=== PATIENT | female | born 1980 | race Two or more races ===

== ENCOUNTER 2016-05-14 22:40 | Emergency (ER) | payer SELFPAY ==
[~2016-05-14] VITALS: Ht 165.1 cm; Wt 88.5 kg
[2016-05-14 22:55] VITALS: BP 122/48
[2016-05-14] MEDS ORDERED: HYDROmorphone 1mg/ml Carpuject IVP ONE (23:15)
[2016-05-14 23:25] LABS: BASOPHILS % (AUTO) 0.7 % (0.0-2.0); EOSINOPHILS % (AUTO) 5.5 % (0.0-3.0); LYMPHOCYTES % (AUTO) 16.3 % (20.0-45.0); MEAN CORPUSCULAR HGB CONC 32.3 G/DL (32.0-36.0); MEAN CORPUSCULAR VOLUME 87 FL (80-99); MEAN PLATELET VOLUME 6.1 FL (6.5-10.1); MONOCYTES % (AUTO) 5.4 % (1.0-10.0); NEUTROPHILS % (AUTO) 72.1 % (45.0-75.0); PLATELET COUNT 429 K/UL (150-450); RED CELL DISTRIBUTION WIDTH 12.9 % (11.6-14.8); WHITE BLOOD COUNT 14.6 K/UL (4.8-10.8)
[2016-05-14 23:46] LABS: ALANINE AMINOTRANSFERASE 23 U/L (3-33); ALBUMIN/GLOBULIN RATIO 1.1 (1.0-2.7); ANION GAP 17 (5-15); ASPARTATE AMINO TRANSFERASE 40 U/L (5-40); CALCIUM 9.1 mg/dL (8.6-10.2); CARBON DIOXIDE 22 mEQ/L (20-30); CHLORIDE 98 mEQ/L (98-107); CREATININE 0.7 mg/dL (0.5-0.9); GLOMERULAR FILTRATION RATE > 60 mL/min (>60); HEMOLYSIS 19; LIPASE 19 U/L (< 60); POTASSIUM 3.9 mEQ/L (3.4-4.9); SODIUM 137 mEQ/L (135-145); TOTAL PROTEIN 7.4 g/dL (6.6-8.7)
[2016-05-15 00:19] LABS: APPEARANCE,URINE CLEAR; KETONES,URINE NEGATIVE (NEGATIVE); LEUKOCYTE ESTERASE ,URINE NEGATIVE (NEGATIVE); NITRITE,URINE NEGATIVE (NEGATIVE); PH,URINE 5 (4.5-8.0); PROTEIN,URINE 2+ (NEGATIVE); UROBILINOGEN,URINE 4 MG/DL (0.0-1.0)
[2016-05-15 00:24] LABS: BACTERIA,URINE FEW /HPF; SQUAMOUS EPITHELIAL CELL,UR FEW /LPF (NONE/OCC); WBC,URINE 0-2 /HPF (0 - 2)
[2016-05-15 00:25] LABS: FINE GRANULAR CASTS,URINE 0-2 /LPF; MUCUS,URINE MANY /LPF (NONE/OCC)
[2016-05-15 01:00] VITALS: BP 120/47
--- NOTE | 2016-05-15 01:10 | Emergency Room Report ---
History of Present Illness General Chief Complaint: Abdominal Pain Source: Patient Present Illness HPI Is a 35-year-old female with no significant past medical history. She present with chief complaint of abdominal pain and vomiting. Onset today. She had a. It cholecystectomy done at [facility] week ago. Was doing well until tonight. Diffuse pain localized to the upper quadrant. Pain is 10 out of 10. Nausea and vomiting. No diarrhea. Denies any other complaint. Allergies: Coded Allergies: No Known Allergies (Unverified , 05/14/16) Patient History Past Medical History: see triage record, old chart reviewed Past Surgical History: cortes Pertinent Family History: none Social History: Denies: smoking Last Menstrual Period: 3 days ago Now: No Immunizations: other Reviewed Nursing Documentation: PMH: Agreed, PSxH: Agreed Nursing Documentation-PMH Hx Gastrointestinal Problems: Yes - GALLBLADDER SURGERY ,MAY 2016 Review of Systems Eye: Denies: blurred vision, eye pain ENT: Denies: ear pain, nose congestion, throat swelling Respiratory: Denies: cough, shortness of breath Cardiovascular: Denies: chest pain, palpitations Gastrointestinal: Reports: abdominal pain, nausea, vomiting, Denies: diarrhea Musculoskeletal: Denies: back pain, joint pain Skin: Denies: rash Neurological: Denies: headache, numbness Endocrine: Denies: increased thirst, increased urine Hematologic/Lymphatic: Denies: easy bruising All Other Systems: negative except mentioned in HPI Physical Exam Vital Signs Date Time Temp Pulse Resp B/P Pulse Ox O2 Delivery O2 Flow Rate FiO2 05/14/16 22:48 97.9 67 18 120/42 97 Room Air vitals normal Sp02 EP Interpretation: reviewed, normal General Appearance: well appearing, no apparent distress, alert Head: normocephalic, atraumatic Eyes: bilateral eye EOMI, bilateral eye PERRL ENT: hearing grossly normal, normal pharynx Neck: full range of motion, supple, no meningismus Respiratory: chest non-tender, lungs clear, normal breath sounds Cardiovascular #1: regular rate, rhythm, no murmur Gastrointestinal: normal bowel sounds, no mass, no organomegaly, no bruit, non- distended, tenderness - Epigastric Musculoskeletal: back normal, gait/station normal, normal range of motion Psychiatric: mood/affect normal Skin: warm/dry Medical Decision Making Diagnostic Impression: Primary Impression: Postoperative abdominal pain ER Course She presents with postoperative pain. No evidence of obstruction. No evidence of infection. No abscess. Pain is better controlled now. We'll discharge home. Lab Results Impression labs unremarkable CT/MRI/US Diagnostic Results CT/MRI/US Diagnostic Results : Imaging Test Ordered: A CT abdomen and pelvis Impression read by radiologist. Mild stranding to the right of the umbilicus. Last Vital Signs Date Time Temp Pulse Resp B/P Pulse Ox O2 Delivery O2 Flow Rate FiO2 05/14/16 22:55 97.9 98 18 122/48 99 Room Air Status: improved Disposition: HOME, SELF-CARE Condition: Stable Scripts Hydrocodone/Acetaminophen 5-325* (HYDROCODONE/ACETAMINOPHEN 5-325*) 1 Each Tablet 1 TAB ORAL Q6H Y for For Pain, #30 TAB 0 Refills Prov: RANDOLPH MARTIN M.D. 05/15/16 Patient Instructions: Abdominal Pain, Adult Additional Instructions: Followup with your Dr. within 7 days. Return if symptom worsen. Call for an appointment. RANDOLPH MARTIN M.D. May 15, 2016 01:10
[2016-05-15] MEDS ORDERED: HYDROmorphone 1mg/ml Carpuject IVP ONE (01:15)
[2016-05-15] MEDS ORDERED: HYDROCODON-ACE1 EA15 ORAL (01:49)
[2016-05-15] MEDS ORDERED: BACTRIM DOUBLE S1 E1 ORAL (02:52)
[2016-05-15 02:55] VITALS: BP 125/55
--- NOTE | 2016-05-15 08:47 | Diagnostic Imaging Report ---
Indications: Abdominal pain Technique: Continuous helical CT imaging of the abdomen and pelvis was performed with automatic exposure control following administration of nonionic IV contrast only, on a Siemens sensation [address] scanner. Axial, coronal, sagittal images were reconstructed at 5 mm slice thickness. No oral contrast was administered per requesting physician's order, despite no contraindications listed in either submitted clinical data or tech note.. CTDI volume(s): 20 mGy Total DLP: 1171 mGy-cm Findings: Comparison: None Lack of oral contrast limits evaluation of gastrointestinal tract, nondilated throughout. Appendix unremarkable. Diverticula in sigmoid colon. No obvious mural thickening, adjacent stranding, extraluminal gas or fluid collections identified. Gallbladder absent. Surgical clips, minimal fluid and stranding in gallbladder fossa. Extrahepatic bile ducts mildly prominent. No associated stone or mass identified. Umbilical/periumbilical skin thickening with subjacent subcutaneous fat stranding, abdominal wall muscular enlargement and heterogeneity. Bilateral ovaries enlarged and contain multiple circumscribed low attenuation foci, not further characterizable. Urinary bladder minimally distended with apparent mild mural thickening. Liver, pancreas, spleen, adrenal glands, kidneys, unopacified ureters, uterus, vascular structures, retroperitoneum, mesentery, remainder visualized abdominopelvic anatomy unremarkable. Mild compressive changes are present in the dependent portions both lung bases. No focal skeletal abnormality identified. IMPRESSION: Findings suggest recent cholecystectomy with residual fluid and stranding in gallbladder fossa, intra-abdominal wall incisional changes as described. Correlate with surgical history. Mild prominence of extrahepatic bile ducts without obvious obstructive etiology, likely secondary to above. Correlate clinically. No other evidence of acute abdominopelvic disease, with limitation as described. Subtle but potentially significant abnormalities the gastrointestinal tract may be missed. Repeat CT scan with full oral and IV contrast preparation recommended for more complete evaluation, as clinically indicated Enlarged ovaries with multiple masses, most likely physiologic cysts. Pathology not excludable. Ultrasound correlation suggested. This finding not described in [facility] preliminary report, minor discrepancy. Colonic diverticulosis Mild pulmonary bibasal subsegmental atelectasis This otherwise correlates with [facility] preliminary report.
== END 2016-05-15 02:55 | disposition home or self-care (01) ==
LOC: EDBD 22:40 → EMR 23:30
DX: G89.18 Other acute postprocedural pain (principal); R10.9 Unspecified abdominal pain; R11.2 Nausea with vomiting, unspecified
CPT/HCPCS: 36415; 74177; 80053; 81003; 81025; 83690; 85025; 96374; 96375; 99284; J1170; J2405; Q9967